=== PATIENT | female | born 1930 | race Caucasian/White ===

== ENCOUNTER 2016-10-28 16:14 | Emergency (ER) | payer MEDICARE, OTHER ==
--- NOTE | ~2016-10-28 | CN ---
Consultation Report [facility] [address] [facility] [place]. [address] NAME: DANAY MORRIS : 30 STATUS : RYANN LIRA PAT#: [id number] AGE: 86 ADM/REG DATE : 10/28/16 MR#: [id number] REPORT SERV DATE: 10/28/16 DICTATED BY: DATE: REPORT STATUS : Draft TRANSCRIBED BY: MODL DATE: 10/28/16 NEUROLOGY CONSULTATION DATE OF CONSULTATION: 10/28/2016 REASON FOR CONSULT: Possible acute stroke. HISTORY OF PRESENT ILLNESS: This is an 86-year-old female who presented to [facility] secondary to acute unresponsiveness with the patient's symptoms started roughly 1500 hours. The patient was in the car when the patient's noted the patient to be acutely unresponsive with the eye deviated to the left. The patient was brought to the emergency room with the patient not following commands and aphasic. The patient was noted to have a history of atrial fibrillation, is on Coumadin with the patient's last dose occurred on the night of 10/27/2016. The patient's last INR checked was a couple of weeks ago, otherwise no reports of recent illness was noted. The patient was noted to have no significant improvement during the emergency room evaluation. In addition, the patient was also noted to have an episode of vomiting after CT scan evaluation. PAST MEDICAL HISTORY: The patient's past medical history is significant for COPD as well as prior pneumonia, history of lung cancer with left pneumonectomy, history of chronic atrial fibrillation, on Coumadin anticoagulation as well as history of kidney stones, urinary tract infection, hypertension, history of some seizure on Depakote as well as previous history of stroke, hypertension, and hypothyroidism. SOCIAL HISTORY: Denies current tobacco, alcohol, or recreational drug usage. ALLERGIES: THE PATIENT WAS NOTED TO HAVE ALLERGY TO CODEINE. MEDICATIONS: The patient's medications consist of Depakote was well as Jantoven. FAMILY HISTORY: Significant for coronary artery disease. REVIEW OF SYSTEMS: Unable to be obtained from the patient secondary to the patient's current mental status. PHYSICAL EXAMINATION: VITAL SIGNS: At the time of evaluation, the patient was noted to have vital signs with T- max of 98.3, heart rate of 71, respirations of 16, and blood pressure of 127/89. GENERAL: The patient is well developed, well nourished, in no acute distress. CARDIOVASCULAR: Regular rate and rhythm. No carotid bruits were otherwise auscultated. PULMONARY: Examination was clear to auscultation bilaterally. NEUROLOGICAL: Generally the patient is alert; however, the patient is not following commands. Aphasic. No spontaneous movement of extremities was noted. No withdrawal to noxious stimulation in all extremities. The patient was noted to be diffusely hyporeflexic. Consultation Report [place] [id number] [facility] [address] [facility] [id number] NAME: DANAY MORRIS : 30 STATUS : [facility]#: [id number] AGE: 86 ADM/REG DATE : 10/28/16 MR#: [id number] REPORT SERV DATE: 10/28/16 DICTATED BY: DATE: REPORT STATUS : Draft TRANSCRIBED BY: MODL DATE: 10/28/16 The patient, in addition, was also noted to have left eye deviation at the time of evaluation without horizontal eye movement. No [id number]-[id number] response was noted. Right facial weakness was noted compared to the left, otherwise, the patient's pupil reactive to light. At the time of evaluation, gait and cerebellar examination is unable to be evaluated. The patient was noted to have NIH stroke scale of 34. LABORATORY STUDY: Demonstrates sodium 140, potassium 3.9, chloride 102, bicarb 28, BUN of 11, creatinine 0.71, glucose 127, and calcium of 9.5. White blood cell count of 10.7, hemoglobin of 15.6, hematocrit of 45.4, and platelet count of 196. INR of 1.7. CT scan of the brain demonstrated no acute hemorrhage. CT angiogram of head and neck demonstrated ICA stenosis on the left as well as cutoff in the left MCA territory during the arterial phase, concerning for possible thrombus as well as left ICA occlusion. IMPRESSION: 1. Acute onset aphasia. 2. Unresponsiveness. NIH stroke scale of 34. Concern for possible acute left MCA-ICA territory stroke. Discussed with [facility]. The patient is to be transferred for acute evaluation. TPA was given at 1602 hours. RECOMMENDATIONS: 1. TPA was given at 1602 hours. 2. We will transfer the patient over to [facility]. [facility] Zachary Bryant MD / [id number] CC: Simone Terrell M.D.
[2016-10-28 15:40] LABS: BASOPHILS 0.4 %; BASOPHILS ABSOLUTE 0.04 10/3/uL (0.0-0.16); EOSINOPHILS 2.3 %; EOSINOPHILS ABSOLUTE 0.25 10/3/uL (0.0-0.53); HEMATOCRIT 45.4 % (36.0-48.0); HEMOGLOBIN 15.6 g/dL (12.0-16.0); IMMATURE GRANULOCYTES 0.1 %; IMMATURE GRANULOCYTES ABSOLUTE 0.01 10/3/uL (0.0-0.11); LYMPHOCYTES 53.2 %; LYMPHOCYTES ABSOLUTE 5.69 10/3/uL (0.67-4.30); MEAN CORPUS HGB CONC 34.4 g/dL (32.0-36.0); MEAN PLATELET VOLUME 10.8 fL (9.2-13.0); MONOCYTES 7.9 %; MONOCYTES ABSOLUTE 0.84 10/3/uL (0.21-1.20); NEUTROPHILS 36.1 %; NEUTROPHILS ABSOLUTE 3.86 10/3/uL (2.02-8.40); PLATELET COUNT 196 10/3/uL (150-400); RBC DISTRIBUTION WIDTH 13.1 % (12.0-16.0); RED CELL COUNT 4.88 10/6/uL (4.0-5.6)
[2016-10-28 15:42] LABS: ER CBC TAT 0 Hrs 09 Mins; MANUAL DIFF NO %; WHITE BLOOD CELLS 10.7 10/3/uL (4.5-10.5)
[2016-10-28 15:45] LABS: INTERNATIONAL NORMAL RATI 1.7 UNITS (-); PARTIAL THROMBO TIME 29.7 SEC (22.5-37.2)
[2016-10-28 15:47] LABS: PROTIME (NOT ORD) 19.6 SEC (12.0-14.5)
[2016-10-28 15:54] LABS: ALBUMIN 3.6 G/DL (3.5-5.0); BUN (BLOOD UREA NITROGEN) 11 MG/DL (6-23); CALCIUM, SERUM 9.5 MG/DL (8.5-10.4); CHLORIDE, SERUM 102 MMOL/L (96-112); CO2 (CARBON DIOXIDE) 28 MMOL/L (24-34); CREATININE 0.71 MG/DL (0.55-1.02); GFR AFRICAN AMERICAN 89 ML/MIN (>=60); GFR NON AFRICAN AMERICAN 77 ML/MIN (>=60); GLOBULIN 3.5 G/DL (2.5-4.1); POTASSIUM, SERUM 3.9 MMOL/L (3.5-5.3); SGOT(AST) 14 U/L (5-40); SGPT(ALT) 18 U/L (5-65); SODIUM, SERUM 140 MMOL/L (135-148); TOTAL BILIRUBIN 1.1 MG/DL (0-1.2); TOTAL PROTEIN 7.1 G/DL (6.0-8.5); TROPONIN I <0.02 NG/ML (<0.05)
[2016-10-28 15:57] LABS: ALKALINE PHOSPHATASE 60 U/L (45-117); GLUCOSE, SERUM 127 MG/DL (60-99)
[~2016-10-28 16:14] MED LIST: ALBUTEROL5 INH; ASAB PO; ATEN25 PO; AZOPT OPH; C5 PO; CALTRA600D PO; CALTRAT600 PO; CEFT5 PO; CENTRUM PO; CENTRUM TAB1 TAB PO; COUMADIN4 MG PO; DEPAK250ER PO; DEPAKOT250 PO; FOSAMAX70 MG PO; JANTOVEN2 MG PO; JANTOVEN2.5 MG PO; JANTOVEN5 MG PO; K500 PO; L20 PO; L80 PO; LEVOTHYROXIN75 MCG PO; NORV10 PO; NORV25 PO; NORV5 PO; OCUVITE PO; OTC ALLERGY TABLET PO; POTASSIUM 99 MG PO; POTASSIUM95 MG OR; POTASSIUM95 MG PO; PREV15 PO; PREV30 PO; PRIN5 PO; PROAIR HFA INH; PROLIA60 MG/1 ML SC; Potassium Gluconate PO; SPIRIVA INH; SYMBICORT 160/41 INH INH; SYN1 PO; SYN88 PO; VITC500 PO
[2016-10-28 16:29] LABS: EOSINOPHILS 2 %; EOSINOPHILS ABSOLUTE (CALC) 0.21 10/3/uL (0.0-0.53); ER DIFF TAT 0 Hrs 56 Mins; LYMPHOCYTES 50 %; LYMPHOCYTES ABSOLUTE (CALC) 5.35 10/3/uL (0.67-4.30); MONOCYTES 11 %; MONOCYTES ABSOLUTE (CALC) 1.18 10/3/uL (0.21-1.20); NEUTROPHILS ABSOLUTE (CALC) 3.96 10/3/uL (2.02-8.40); PLATELET ESTIMATE ADQ (ADEQUATE); RBC MORPHOLOGY NORM (NORMAL); SEGMENTED NEUTROPHIL (0) 37 %; TOTAL NUCLEATED CELLS 100
[2016-10-29 15:19] LABS: CREATININE 0.6 MG/DL (0.55-1.02)
== END 2016-10-28 16:25 | disposition home or self-care (01) ==
LOC: ER 16:14
PROVIDERS: Emergency Medicine
DX: I63.232 Cerebral infarction due to unspecified occlusion or stenosis of left carotid arteries (principal); Z85.118 Personal history of other malignant neoplasm of bronchus and lung; Z88.5 Allergy status to narcotic agent; Z88.8 Allergy status to other drugs, medicaments and biological substances; Z79.899 Other long term (current) drug therapy; Z79.01 Long term (current) use of anticoagulants
CPT/HCPCS: 36415; 70450; 70496; 70498; 80053; 82962; 84484; 85025; 85610; 85730; 86850; 86900; 86901; 93005; 96365; 96366; 99291; J2997; Q9967